=== PATIENT | male | born 1960 | race Caucasian/White ===

== ENCOUNTER 2022-02-03 09:16 | Emergency (ER) | payer BC, OTHER ==
[~2022-02-03] VITALS: Ht 165.1 cm; Wt 61.7 kg
--- NOTE | 2022-02-03 09:16 | NUR ---
ALS TO ER BED 10
[2022-02-03 09:24] VITALS: BP 210/114
[2022-02-03] MEDS ORDERED: NACL 0.9% 1,000 ML IV SCH (09:35)
--- NOTE | 2022-02-03 09:45 | NUR ---
61/M BIBA FROM HOME D/T ALOC FOUND BY FAMILY ON FLOOR ONCONSCIOUS. PER FAMILY, PT WAS WARM TO TOUCH. AFEBRILE AT BEDSIDE. 0.5MG NARCAN GIVEN BY EMS EN ROUTE. PT IS NOW MORE ALERT AND RESPOND TI VERBAL STIMULI, DIALYSIS STENT PLACED 2 DAYS AGO TO LEFT ARM. TACHY OF 132 ON MONITOR. O2 ON ROOM AIR. DENIES ANY PAIN. ON [employer]. IV ESTABLISHED ON RIGHT HAND 18 BY EMS. 18G PLACED ON RIGHT FOREARM. NKA PMH: CKD, DM, HTN
--- NOTE | 2022-02-03 09:57 | NUR ---
X-Ray at bedside.
--- NOTE | 2022-02-03 10:03 | NUR ---
PT WENT FOR CT
[2022-02-03 10:05] LABS: BASOPHILS # (AUTO) 0.1 K/uL (0.00-0.22); BASOPHILS % (AUTO) 0.7 % (0.0-2.0); EOSINOPHILS # (AUTO) 0.1 K/uL (0-0.4); EOSINOPHILS % (AUTO) 1.3 % (0.0-4.0); HEMATOCRIT 27.1 % (36-52); HEMOGLOBIN 9.3 g/dL (12.0-18.0); LYMPHOCYTES # (AUTO) 0.1 K/uL (2.0-11.5); LYMPHOCYTES % (AUTO) 1.6 % (20.5-51.1); MEAN CORPUSCULAR HEMOGLOBIN 30 pg (27-31); MEAN CORPUSCULAR HGB CONC 34 g/dL (33-37); MEAN CORPUSCULAR VOLUME 87.6 fL (80-94); MONOCYTES # (AUTO) 0.2 K/uL (0.8-1.0); MONOCYTES % (AUTO) 2.6 % (1.7-9.3); NEUTROPHILS # (AUTO) 6.7 K/uL (1.8-7.7); NEUTROPHILS % (AUTO) 93.8 % (42.2-75.2); PLATELET COUNT (AUTO) 93 K/uL (140-450); RED CELL DISTRIBUTION WIDTH 14.1 % (11.6-13.7)
[2022-02-03 10:14] LABS: WHITE BLOOD COUNT (AUTO) 7.2 K/uL (4.8-10.8)
[2022-02-03 10:18] LABS: ALBUMIN 2.8 g/dL (3.4-5.0); ANION GAP 18.7 (8-16); CARBON DIOXIDE 19.4 mmol/L (21-32); POTASSIUM 4.1 mmol/L (3.5-5.1)
[2022-02-03 10:19] LABS: CREATININE 6.1 mg/dL (0.6-1.3)
[2022-02-03 10:24] LABS: APPEARANCE,URINE CLEAR (CLEAR); BILIRUBIN,URINE NEGATIVE (NEGATIVE); BLOOD, URINE 1+ (NEGATIVE); COLOR,URINE YELLOW (YELLOW); LEUKOCYTE ESTERASE ,URINE NEGATIVE (NEGATIVE); NITRITE, URINE NEGATIVE (NEGATIVE); UGLUCOSE 3+ (NEGATIVE)
--- NOTE | 2022-02-03 10:27 | NUR ---
PER DAUGHTER, PT RECENTLY HAS FISTULA PLACED ON RIGHT ARM BUT NO DIALYSIS DONE YET
[2022-02-03 10:38] LABS: WBC,URINE 0-5 /HPF (0-5)
[2022-02-03 10:39] LABS: OTHER CASTS, URINE None Seen /LPF (None Seen)
[2022-02-03] MEDS ORDERED: cefTRIAXone 1,000 MG VIAL ONE (11:25)
[2022-02-03] MEDS ORDERED: NACL 0.9% 1,000 ML IV ONE (12:10)
--- NOTE | 2022-02-03 12:55 | NUR ---
RECEIVED TXFER FACILITY INFO FROM [facility] [employer] COORDINATOR: [facility] TELE ROOM 0117 CALL FOR REPORT [phone] [phone] WILL CALL BACK FOR TRANSPORT ETA
--- NOTE | 2022-02-03 13:03 | NUR ---
GAVE REPORT TO ANALI CARROLL @ [facility].
--- NOTE | 2022-02-03 13:26 | NUR ---
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
--- NOTE | 2022-02-03 13:36 | NUR ---
[facility] here for transport to [facility]
--- NOTE | 2022-02-03 13:40 | NUR ---
[facility] AT BEDSIDE FOR TRANSPORT.
[2022-02-03 13:45] VITALS: BP 153/87
--- NOTE | 2022-02-03 13:45 | NUR ---
Patient to be transferred to [facility]. Is being transferred due to INSURANCE. Receiving facility has accepting physician and available space. ER physician has signed transfer form. Patient or responsible democrat has agreed to transfer and signed form. Patient belongings inventoried and will be sent with patient. Copy of nursing notes, lab reports, EKG, Physicians Orders and X-rays to be sent with patient. Report called to ANALI CARROLL at receiving facility. [facility] ambulance service PICKED UP PATIENT
== END 2022-02-03 13:45 | disposition short-term general hospital (02) ==
LOC: MED 09:16
DX: R55 Syncope and collapse (principal); Z20.822 Contact with and (suspected) exposure to COVID-19; N18.9 Chronic kidney disease, unspecified; E11.9 Type 2 diabetes mellitus without complications; I10 Essential (primary) hypertension; Z99.2 Dependence on renal dialysis; Z79.4 Long term (current) use of insulin; Z79.899 Other long term (current) drug therapy
CPT/HCPCS: 36415; 70450; 71045; 80053; 81001; 83605; 83880; 84484; 85025; 87040; 87086; 87426; 87804; 93005; 96365; 99285; J0696; Q0092; J7030